=== PATIENT | female | born 1990 | race Two or more races ===

== ENCOUNTER 2021-06-03 14:56 | Outpatient (CLI) | payer OTHER | END 2021-06-03 15:56 | disposition home or self-care (01) | LOC: PRENATAL 14:56 | PROVIDERS: ATTEND Obstetrics & Gynecology Maternal & Fetal Medicine | DX: O35.0XX1 Maternal care for (suspected) central nervous system malformation in fetus, fetus 1 (principal); O35.3XX1 Maternal care for (suspected) damage to fetus from viral disease in mother, fetus 1; O98.512 Other viral diseases complicating pregnancy, second trimester; O26.852 Spotting complicating pregnancy, second trimester; Z36.89 Encounter for other specified antenatal screening; Z3A.22 22 weeks gestation of pregnancy ==

== ENCOUNTER 2021-09-17 05:43 | Inpatient (IN) | payer OTHER ==
[~2021-09-17] VITALS: Ht 165.1 cm; Wt 133.4 kg
[2021-09-17] MEDS ORDERED: PRENATABS RX T1 EACH PO (13:24)
[2021-09-17] MEDS ORDERED: ADULT LOW DOSE81 M1 PO (13:25)
== END 2021-09-21 09:06 | disposition home or self-care (01) | DRG 788 ==
LOC: OBS/DEL 05:43 → SURG-SUITE 13:02 → LDR 13:02 → O/R 09-18 01:02 → SURG-SUITE 09-18 01:20
PROVIDERS: ADMIT Obstetrics & Gynecology; ATTEND Obstetrics & Gynecology
PROC: 3E0P7VZ Introduction of Hormone into Female Reproductive, Via Natural or Artificial Opening (ICD-10-PCS; 2021-09-17)
PROC: 4A1HXFZ Monitoring of Products of Conception, Cardiac Rhythm, External Approach (ICD-10-PCS; 2021-09-17)
PROC: 10D00Z1 Extraction of Products of Conception, Low, Open Approach (ICD-10-PCS; principal; 2021-09-18)
DX: O62.1 Secondary uterine inertia (principal); O42.02 Full-term premature rupture of membranes, onset of labor within 24 hours of rupture; Z3A.39 39 weeks gestation of pregnancy; Z37.0 Single live birth